=== PATIENT | female | born 1975 | race Caucasian/White ===

== ENCOUNTER 2017-01-04 16:39 | Inpatient (IN) | payer OTHER ==
[~2017-01-04] VITALS: Ht 162.6 cm; Wt 70.9 kg
[2017-01-04] MEDS: LACTATED RINGERS 1,000 ML IV SCH ×5 (08:55→23:20)
[~2017-01-04 16:39] MED LIST: DILT240C61 PO; METH250T PO; [UNRECOGNIZED DRUG - OTHER] PO
[2017-01-04 16:46] VITALS: BP 136/86
[2017-01-04] MEDS ORDERED: MAGNESIUM SULF. PMX 20GM/500ML 500 ML IV ONE (17:18)
[2017-01-04] MEDS ORDERED: BETAMETHASONE 6 MG/ML, 5ML IM ONE (17:18)
[2017-01-04] MEDS ORDERED: AMPICILLIN 2 GM in SODIUM CHLORIDE 0.9% 100 ML IVPB STA (17:19)
[2017-01-04] MEDS: BETAMETHASONE 6 MG/ML, 5ML IM SCH (17:20)
[2017-01-04] MEDS ORDERED: OXYTOCIN 30U/ 0.9% NaCL 500ML 500 ML IV ONE (17:22)
[2017-01-04] MEDS ORDERED: LACTATED RINGERS 500 ML IVBOLUS ONE (17:30)
[2017-01-04] MEDS ORDERED: FENTANYL PF 100 MCG/2ML IV PRN (17:30)
[2017-01-04] MEDS ORDERED: MAGNESIUM SULFATE PMX 2GM/50ML 50 ML IVPB ONE (17:30)
[2017-01-04] MEDS ORDERED: FENTANYL PF 100 MCG/2ML IVPush PRN (17:30)
[2017-01-04] MEDS ORDERED: MAGNESIUM SULFATE PMX 4GM/100M 100 ML IVPB ONE (17:30)
[2017-01-04] MEDS: MAGNESIUM SULF. PMX 20GM/500ML 500 ML IV SCH ×2 (17:33→17:53)
[2017-01-04] MEDS ORDERED: NEWBORN KIT ONE (18:10)
[2017-01-04] MEDS ORDERED: OXYTOCIN 30U/ 0.9% NaCL 500ML 500 ML ONE (18:11)
[2017-01-04 18:35] LABS: HEMATOCRIT 32.7 % (34.6-47.8); HEMOGLOBIN 11.3 g/dL (11.7-16.4); WHITE BLOOD COUNT 15.4 x10^3/uL (3.4-10)
[2017-01-04] MEDS ORDERED: FENTANYL/BUPIV./NS/PF 250 ML EPIDCONT SCH ×2 (18:55)
[2017-01-04] MEDS ORDERED: FENTANYL/BUPIV./NS/PF 250 ML EPIDCONT ONE ×2 (18:58→19:01)
[2017-01-04] MEDS ORDERED: BUPIVACAINE/PF 0.25% ONE (18:58)
[2017-01-04] MEDS ORDERED: NALOXONE 0.4 MG/ML, 1ML IVPush PRN ×2 (19:00)
[2017-01-04] MEDS ORDERED: LACTATED RINGERS 1,000 ML IVBOLUS PRN ×2 (19:00)
[2017-01-04] MEDS ORDERED: EPHEDRINE 50 MG/ML, 1ML IVPush PRN ×2 (19:00)
[2017-01-04] MEDS ORDERED: BUPIVACAINE 0.25% ONE (19:01)
[2017-01-04 19:45] VITALS: BP 115/66
[2017-01-04] MEDS ORDERED: ACETAMINOPHEN 325 MG TABLET ONE (20:33)
[2017-01-04] MEDS ORDERED: ACETAMINOPHEN 325 MG TABLET PO PRN (21:00)
[2017-01-04] MEDS: AMPICILLIN 1 GM in SODIUM CHLORIDE 0.9% 50 ML IVPB SCH (21:25)
[2017-01-05] MEDS ORDERED: MAGNESIUM SULF. PMX 20GM/500ML 500 ML IV ONE (00:20)
[2017-01-05] MEDS: MAGNESIUM SULF. PMX 20GM/500ML 500 ML IV SCH (00:24)
[2017-01-05] MEDS: AMPICILLIN 1 GM in SODIUM CHLORIDE 0.9% 50 ML IVPB SCH ×3 (01:00→09:30)
[2017-01-05] MEDS: LACTATED RINGERS 1,000 ML IV SCH ×11 (01:22→17:30)
[2017-01-05] MEDS ORDERED: BETAMETHASONE 6 MG/ML, 5ML IM ONE (04:40)
[2017-01-05] MEDS: BETAMETHASONE 6 MG/ML, 5ML IM SCH (05:01)
[2017-01-05] MEDS ORDERED: OXYTOCIN 30U/ 0.9% NaCL 500ML 500 ML ONE (06:56)
[2017-01-05] MEDS ORDERED: FENTANYL PF 100 MCG/2ML ONE (07:09)
[2017-01-05] MEDS ORDERED: PROPOFOL 10 MG/ML, 20ML ONE (07:56)
[2017-01-05] MEDS ORDERED: ONDANSETRON 2MG/ML, 2ML ONE ×2 (07:56)
[2017-01-05] MEDS ORDERED: LIDOCAINE-MPF 2% ,5ML ONE ×2 (07:57)
[2017-01-05] MEDS: OXYTOCIN 30U/ 0.9% NaCL 500ML 500 ML IV SCH ×5 (08:09→17:41)
[2017-01-05] MEDS ORDERED: MAGNESIUM HYDROXIDE 8%, 30ML UDC PO PRN (08:30)
[2017-01-05] MEDS ORDERED: OXYTOCIN 10 UNITS/ML, 1ML IM PRN (08:30)
[2017-01-05] MEDS ORDERED: CARBOPROST TROMETHAMINE 250 MCG/ML, 1ML IM PRN (08:30)
[2017-01-05] MEDS ORDERED: DIPH,PERTUSS(ACELL),TET VAC/PF NC IM-VACC PRN (08:30)
[2017-01-05] MEDS ORDERED: CALCIUM CARBONATE 500 MG TAB.CHEW PO PRN (08:30)
[2017-01-05] MEDS ORDERED: DOCUSATE 100 MG CAPSULE PO PRN (08:30)
[2017-01-05] MEDS ORDERED: ONDANSETRON 2MG/ML, 2ML IV PRN (08:30)
[2017-01-05] MEDS ORDERED: ACETAMINOPHEN 325 MG TABLET PO PRN ×2 (08:30)
[2017-01-05] MEDS ORDERED: OXYcodone IR 5MG TABLET PO PRN (08:30)
[2017-01-05] MEDS ORDERED: KETOROLAC 30 MG/1 ML ONE ×2 (08:32→08:36)
[2017-01-05] MEDS: PRENATAL VIT/IRON/FA 1 EACH TABLET PO SCH (09:00)
[2017-01-05 09:10] VITALS: BP 118/79
[2017-01-05] MEDS ORDERED: KETOROLAC 30 MG/1 ML IV ONE (09:30)
[2017-01-05] MEDS ORDERED: OXYcodone 5 MG/5 ML ORAL.SOL UDC PO PRN (09:30)
[2017-01-05] MEDS ORDERED: FENTANYL PF 100 MCG/2ML IVPush PRN (09:30)
[2017-01-05] MEDS ORDERED: METOCLOPRAMIDE 5 MG/ML, 2ML IV PRN (09:30)
[2017-01-05] MEDS: IBUPROFEN 600 MG TABLET PO PRN ×2 (13:52→20:50)
[2017-01-05 14:03] VITALS: BP 112/72
[2017-01-05 14:07] LABS: HEMATOCRIT 25.3 % (34.6-47.8); HEMOGLOBIN 8.6 g/dL (11.7-16.4); WHITE BLOOD COUNT 32.4 x10^3/uL (3.4-10)
[2017-01-05 14:44] LABS: DIFF TOTAL CELLS COUNTED 100 CELL DIFF
[2017-01-05 14:47] LABS: ANISOCYTOSIS 1+; VERIFY COUNTS? YES
[2017-01-05] MEDS: OXYcodone/APAP 5/325MG TABLET PO PRN (18:20)
[2017-01-05 20:35] VITALS: BP 116/71
[2017-01-06 00:34] VITALS: BP 118/83
[2017-01-06] MEDS: OXYcodone/APAP 5/325MG TABLET PO PRN ×3 (00:35→07:15)
[2017-01-06] MEDS: LACTATED RINGERS 1,000 ML IV SCH (01:30)
[2017-01-06 03:44] VITALS: BP 125/83
[2017-01-06] MEDS: IBUPROFEN 600 MG TABLET PO PRN ×3 (03:44→21:18)
[2017-01-06] MEDS: OXYTOCIN 30U/ 0.9% NaCL 500ML 500 ML IV SCH (04:09)
[2017-01-06 07:05] VITALS: BP 123/71
[2017-01-06] MEDS: PRENATAL VIT/IRON/FA 1 EACH TABLET PO SCH (07:15)
[2017-01-06] MEDS ORDERED: FLU VACC QS2017-18 (36MOS+) UP/PF 0.5 ML IM-VACC ONE (07:30)
[2017-01-06 19:45] VITALS: BP 137/84
[2017-01-06] MEDS ORDERED: OXYcodone/APAP 5/325MG TABLET PO PRN (20:00)
[2017-01-06] MEDS ORDERED: CALCIUM CARBONATE 500 MG TAB.CHEW PO PRN (21:00)
[2017-01-06] MEDS ORDERED: ACETAMINOPHEN 325 MG TABLET PO PRN ×2 (21:00→21:30)
[2017-01-06] MEDS ORDERED: METHYLDOPA 250 MG TABLET PO SCH (21:00)
[2017-01-06] MEDS ORDERED: CARBOPROST TROMETHAMINE 250 MCG/ML, 1ML IM PRN (21:00)
[2017-01-06] MEDS ORDERED: DOCUSATE 100 MG CAPSULE PO PRN (21:30)
[2017-01-06] MEDS ORDERED: ONDANSETRON 2MG/ML, 2ML IV PRN (21:30)
[2017-01-06] MEDS ORDERED: OXYcodone 5 MG/5 ML ORAL.SOL UDC PO PRN (21:30)
[2017-01-07 02:00] VITALS: BP 124/79
[2017-01-07 04:33] VITALS: BP 128/69
[2017-01-07 08:20] VITALS: BP 128/74
[2017-01-07] MEDS ORDERED: METHYLDOPA 250 MG TABLET HOMEMEDPO SCH (09:00)
[2017-01-07] MEDS ORDERED: DILTIAZEM 240 MG CAP.ER.24H HOMEMEDPO SCH (09:00)
[2017-01-07] MEDS ORDERED: PRENATAL VIT/IRON/FA 1 EACH TABLET PO SCH (09:00)
[2017-01-07] MEDS ORDERED: DILTIAZEM 240 MG CAP.ER.24H PO SCH (09:00)
[2017-01-07] MEDS ORDERED: IBUP-1222 PO (09:42)
[2017-01-07] MEDS ORDERED: OXYC-302 PO (09:42)
[2017-01-07] MEDS: IBUPROFEN 600 MG TABLET PO PRN (09:46)
== END 2017-01-07 10:55 | disposition home or self-care (01) | DRG 767 ==
LOC: LDOP 16:39 → LDIP 17:09 → 2NW 01-05 09:06
PROVIDERS: ADMIT Obstetrics & Gynecology Female Pelvic Medicine and Reconstructive Surgery; ATTEND Obstetrics & Gynecology Female Pelvic Medicine and Reconstructive Surgery
PROC: 10D17ZZ Extraction of Products of Conception, Retained, Via Natural or Artificial Opening (ICD-10-PCS; principal; 2017-01-05)
PROC: 10E0XZZ Delivery of Products of Conception, External Approach (ICD-10-PCS; 2017-01-05)
PROC: 3E0R3BZ Introduction of Anesthetic Agent into Spinal Canal, Percutaneous Approach (ICD-10-PCS; 2017-01-05)
PROC: 00HU33Z Insertion of Infusion Device into Spinal Canal, Percutaneous Approach (ICD-10-PCS; 2017-01-05)
DX: O60.14X0 Preterm labor third trimester with preterm delivery third trimester, not applicable or unspecified (principal); O10.92 Unspecified pre-existing hypertension complicating childbirth; O09.523 Supervision of elderly multigravida, third trimester; Z37.0 Single live birth; Z3A.32 32 weeks gestation of pregnancy; Z88.8 Allergy status to other drugs, medicaments and biological substances
CPT/HCPCS: 36415; 82803; 83735; 85025; 86850; 86900; 87081; 88307; 90715; J0290; J0702; J2405; J2704; J3490; J7120; J2590; J3010; J3475